=== PATIENT | male | born 1965 | race Asian ===

== ENCOUNTER 2024-04-01 07:28 | Outpatient (CLI) | payer OTHER ==
--- NOTE | 2024-04-01 11:35 | MRI Report ---
PROCEDURE: Cervical Spine WO INDICATIONS: CERVICAL ROOT DISORDER TECHNIQUE: Noncontrast sagittal T1 spin echo and T2 fast spin echo, sagittal STIR, foraminal oblique sagittal T2 fast spin echo, and axial gradient echo or T2 fast spin echo through the cervical spine. COMPARISON: None. FINDINGS: Image quality: Excellent. Alignment and Curvature: There is straightening of the normal cervical lordosis. No significant AP alignment abnormality can be seen. Bone Marrow: Marrow demonstrates normal overall signal. Spinal Cord: Visualized spinal cord has normal size and signal. No cerebellar tonsillar herniation. Paraspinous Soft Tissues: No paravertebral masses. Prevertebral soft tissues are normal in thicknes s. C2-C3: No significant abnormality is seen. C3-C4: The disc height and disc signal are well preserved. Mild disc osteophyte complex is seen, wh ich is eccentric to the right. There is moderate bilateral neuroforaminal narrowing seen, right worse than left. Mild central canal narrowing is seen. C4-C5: The disc height is relatively well preserved. Moderate disc osteophyte complex is seen. Ther e is a mild central disc osteophyte protrusion seen. Mild facet hypertrophy is seen. Moderate bilat eral neural foraminal narrowing is seen. Moderate central canal narrowing is seen. Associated mas s effect is seen upon the ventral spinal cord. C5-C6: The disc height is relatively well preserved. Mild disc osteophyte complex is seen. There is a central/left disc osteophyte protrusion seen, as on series 3 image 23. Mild bilateral neural ge inal narrowing is seen. Moderate central canal narrowing is seen. Associated mass effect is seen upon the ventral spinal cord. C6-C7: Mild loss of disc height and disc signal are seen. Moderate disc osteophyte complex is see n. There is a central/right disc osteophyte protrusion seen, as on series 3 image 30. At least mode rate bilateral neuroforaminal narrowing can be seen. Moderate central canal narrowing is seen. Asso ciated mass effect is seen upon the ventral spinal cord. C7-T1: Mild loss of disc height and disc signal are seen. Moderate disc osteophyte complex is seen, with a central/right disc osteophyte protrusion, as on series 3 image 36. There is moderate to severe right-sided and moderate left-sided neuroforaminal narrowing. Mild central canal narrowing is seen. Minimal mass effect can be seen upon the ventral spinal cord. IMPRESSION: Multiple levels of cervical spine degenerative change can be seen, which are worst inferiorly. Straightening of the normal cervical lordosis is seen, which is commonly observed in patients with mu scular spasm. Reviewed by: Elier Ballard MD on 04/01/2024 10:33 AM KATIE Approved by: Elier Ballard MD on 04/01/2024 10:33 AM KATIE Station ID: [id number]
== END 2024-04-01 07:29 | disposition home or self-care (01) ==
LOC: DI 07:28
PROVIDERS: ATTEND Nurse Practitioner Family
DX: M47.812 Spondylosis without myelopathy or radiculopathy, cervical region (principal); M48.02 Spinal stenosis, cervical region

== ENCOUNTER 2024-06-09 06:32 | Day surgery (SDC) | payer OTHER ==
[2024-06-09] MEDS: LACTATED RINGERS 1,000 ML IV ONE ×2 (06:59→08:03)
[2024-06-09] MEDS ORDERED: PROPOFOL 500 MG/50 ML 500 MG/50 ML VIAL ONE (07:06)
[2024-06-09] MEDS ORDERED: LIDOCAINE-MPF 2% 5 ML VIAL ONE (07:06)
--- NOTE | 2024-06-09 07:24 | ANESTHESIA ---
Pre-Anesthesia VS, & Labs - Diagnosis screening - Procedure colonoscopy Vital Signs: Temp Pulse Resp BP Pulse Ox O2 Flow Rate 36.1 C L 72 16 139/93 H 98 06/09/24 06:45 06/09/24 06:45 06/09/24 06:45 06/09/24 06:45 06/09/24 06:45 Height: 5 ft 6 in Weight (kg): 90.3 kg Body Mass Index: 32.1 BMI Classification: Obese - NPO Last Fluid Intake: 0530 Last Food Intake: >8hr Home Medications and Allergies Home Medications: Ambulatory Orders Aspirin [Aspirin EC] 81 mg PO DAILY 06/03/24 Atorvastatin Calcium [Lipitor] 80 mg PO DAILY 06/03/24 carvediloL [Coreg] 12.5 mg PO DAILY 06/03/24 Aspirin [Aspirin EC] 81 mg PO DAILY 06/03/24 Atorvastatin Calcium [Lipitor] 80 mg PO DAILY 06/03/24 carvediloL [Coreg] 12.5 mg PO DAILY 06/03/24 Allergies/Adverse Reactions: Allergies Allergy/AdvReac Type Severity Reaction Status Date / Time No Known Drug Allergies Allergy Verified 06/03/24 11:32 Anes History & Medical History - Anesthetic History Anesthesia Complications: reports: No previous complications Family history of Anesthesia Complications: Denies - Medical History Cardiovascular: reports: Hypertension, High cholesterol, Other (mi in 2007, one stent; doing well since then; denies, cp/sob; is active) Pulmonary: reports: None Gastrointestinal: reports: None, GERD (rarely, fine today) Urinary: reports: None Musculoskeletal: reports: None Endocrine/Autoimmune: reports: None Skin: reports: None Smoking Status: Never smoker Psychosocial: reports: No issues indicated - Surgical History General: reports: Colonoscopy Cardiothoracic: reports: Coronary stent Orthopedic: reports: Spine surgery Results - EKG Results EKG Comparison: Normal EKG Exam General: Alert, Oriented x3 Dental: WNL, Dentures full Upper, Dentures full Lower Mouth Openin Fingerbreadth Neck Mobility: Normal Mallampati classification: II Thyromental Distance: 4-6 cm Respiratory: Lungs clear Cardiovascular: Regular rate Plan Anesthesia Type: Total IV Consent for Procedure(s) Verified and Reviewed: Yes Code Status: Attempt Resuscitation ASA classification: 2-Mild systemic disease Is this case an emergency?: No
[2024-06-09 08:29] VITALS: BP 111/73; O2SAT 98
--- NOTE | 2024-06-09 09:19 | ANESTHESIA POST OP EVALUATION ---
Anesthesia Post Eval - Post Anesthesia Eval Vitals: Last Vital Signs Temp 36.2 C L 06/09/24 08:03 Pulse 61 06/09/24 08:27 Resp 13 06/09/24 08:27 BP 111/73 06/09/24 08:27 Pulse Ox 98 06/09/24 08:27 O2 Flow Rate CV Function Including HR & BP: Stable Pain Control: Satisfactory Nausea & Vomiting: Negative Mental Status: Baseline Respiratory Status: Airway Patent Hydration Status: Satisfactory Anesthesia Complications: None
== END 2024-06-09 06:33 | disposition home or self-care (01) ==
LOC: SDS 06:32
PROVIDERS: ATTEND Surgery
PROC: 0DBN8ZZ Excision of Sigmoid Colon, Via Natural or Artificial Opening Endoscopic (ICD-10-PCS; principal; 2024-06-09 07:30)
DX: Z12.11 Encounter for screening for malignant neoplasm of colon (principal); K63.5 Polyp of colon; K64.1 Second degree hemorrhoids; E66.9 Obesity, unspecified; Z68.32 Body mass index [BMI] 32.0-32.9, adult; Z79.82 Long term (current) use of aspirin; I25.2 Old myocardial infarction; Z95.5 Presence of coronary angioplasty implant and graft
CPT/HCPCS: 45380; J7120